=== PATIENT | female | born 1990 | race Caucasian/White ===

== ENCOUNTER 2019-08-21 12:41 | Day surgery (SDC) | payer OTHER ==
[2019-08-21] MEDS ORDERED: PROPOFOL 200 MG/20 ML VIAL IVP ONE (12:42)
[2019-08-21] MEDS ORDERED: fentaNYL 100 MCG/2 ML VIAL IVP ONE (12:42)
[2019-08-21] MEDS ORDERED: MIDAZOLAM 2 MG/2 ML VIAL IVP ONE (12:42)
[2019-08-21] MEDS ORDERED: KETOROLAC 30 MG/ML VIAL IVP ONE (12:42)
[2019-08-21 13:06] LABS: HCG UR QUAL NEGATIVE
[2019-08-21] MEDS ORDERED: HYDROcod/ACETAM 5/325 MG TABLET PO PRN ×2 (13:11→15:40)
[2019-08-21] MEDS ORDERED: ONDANSETRON 4 MG/2 ML VIAL IVP PRN ×2 (13:11→15:40)
[2019-08-21] MEDS ORDERED: LACTATED RINGERS 1,000 ML IV ONE (13:12)
[2019-08-21] MEDS ORDERED: SCOPOLAMINE PATCH TOP ONE (13:34)
--- NOTE | 2019-08-21 13:46 | ANESTHESIA ---
Pre-Anesthesia VS, & Labs - Diagnosis Nexplanon implant - Procedure removal Nexplanon implant, replacement of same Vital Signs: Temp Pulse Resp BP Pulse Ox 36.6 C 73 16 135/78 H 100 08/21/19 13:00 08/21/19 13:00 08/21/19 13:00 08/21/19 13:00 08/21/19 13:00 Height 5 ft 5 in Weight (kg) 82.8 kg - NPO >8 hours - Is Patient ?: No - Lab Results Lab results reviewed: Yes Home Medications and Allergies Home Medications: Ambulatory Orders Ibuprofen [Motrin] 600 mg PO Q6H PRN 08/15/19 Zolpidem [Ambien] 5 mg PO HS 08/15/19 Active Medications Hydrocodone Bitart/Acetaminophen ([place] 5/325) 1 tab PO Q4HR PRN PRN Reason: PAIN Ondansetron HCl (Zofran Inj) 4 mg IVP Q6HR PRN PRN Reason: Nausea / Vomiting Ibuprofen [Motrin] 600 mg PO Q6H PRN 08/15/19 Zolpidem [Ambien] 5 mg PO HS 08/15/19 Allergies/Adverse Reactions: Allergies Allergy/AdvReac Type Severity Reaction Status Date / Time No Known Drug Allergies Allergy Verified 08/15/19 11:24 Anes History & Medical History - Anesthetic History Anesthesia Complications: reports: No previous complications Family history of Anesthesia Complications: Denies Family history of Malignant Hyperthermia: Denies - Medical History Cardiovascular: reports: None Pulmonary: reports: None Gastrointestinal: reports: None Urinary: reports: None Musculoskeletal: reports: None Endocrine/Autoimmune: reports: Other (insulin sensitivity) Skin: reports: None Psychosocial: reports: No issues indicated - Surgical History General: Cholecystectomy Eyes Ears Nose Throat (EENT): Tonsil/Adenoidectomy, Other Exam General: Alert, Oriented x3, Cooperative Dental: WNL Mouth Openin Fingerbreadth Neck Mobility: Normal Mallampati classification: II Respiratory: Lungs clear, Normal breath sounds Cardiovascular: Regular rate Neurological: Normal speech Mental/Cognitive Status: Alert/Oriented X3, Normal for patient Cognitive Status: Within normal limits Plan Anesthesia Type: General (back-up), MAC Consent for Procedure(s) Verified and Reviewed: Yes Code Status: Attempt Resuscitation ASA classification: 1-Healthy patient Is this case an emergency?: No
[2019-08-21] MEDS ORDERED: CEFAZOLIN SODIUM IN 0.9 % NACL 2 GM/100 ML BAG IV ONE (13:58)
[2019-08-21] MEDS ORDERED: BUPIVACAINE 0.5%-EPI 1:200000 PF 30 ML VIAL ONE (15:05)
[2019-08-21] MEDS ORDERED: LIDOCAINE-MPF 1% 30 ML VIAL ONE (15:06)
[2019-08-21 16:33] VITALS: BP 126/74
--- NOTE | 2019-08-22 16:54 | OPERATIVE REPORT ---
Operative Report - General Procedure Date: 08/21/19 Planned Procedure: Removal of retained foreign body left upper arm Pre-Op Diagnosis: Retained foreign body -left upper arm Procedure Performed: Removal of retained foreign body in the left upper inner arm Post Op Diagnosis: Same - Procedure Note Primary Surgeon: Johnna Anesthesia Provider: ANNE Glez Anesthesia Technique: Local, MAC Estimated Blood Loss (mL): 2 Indications: Left upper extremity retained foreign body after placement for control. Findings: In tact 4.5 cm tubular structure consistent with an implanted contraceptive device Complications: None apparent - Other Other Information/Narrative: After obtaining informed consent, the patient is brought to the operating room and placed in the supine position on the operating table. Following successful induction of MAC sedation, the left arm was prepped and draped in the standard surgical fashion. A timeout was held per scope protocol.All elements of the surgical safety checklist were followed before, during, and after the procedure. We began by infiltrating a mixture of local anesthetics in the region of the existing scar the patient had obtained at the time the device was placed. Once this was done, a 1.5 cm incision was created here and carried down through the skin and subcutaneous tissue. The surgeon's finger was introduced into the defect until the tip of the device could be felt. Once we had identified its location, it was grasped with a hemostat forcep and removed from the subcutaneous tissue. The wound was checked for hemostasis and closed in 2 layers with Vicryl and Monocryl suture. Dermabond was applied to the skin. All sponge, needle, and instrument counts were correct at the conclusion of the case. The patient was allowed to awaken from anesthesia without difficulty and taken to the postanesthesia care unit in good condition.
== END 2019-08-21 12:42 | disposition home or self-care (01) ==
LOC: SDS 12:41
PROVIDERS: ATTEND Surgery
PROC: 0JPV3HZ Removal of Contraceptive Device from Upper Extremity Subcutaneous Tissue and Fascia, Percutaneous Approach (ICD-10-PCS; principal; 2019-08-21 14:15)
DX: Z30.46 Encounter for surveillance of implantable subdermal contraceptive (principal)
CPT/HCPCS: 11982; 81025; J0690; J3490; J7120